=== PATIENT | female | born 1955 | race Caucasian/White ===

== ENCOUNTER 2020-10-17 08:46 | Day surgery (SDC) | payer MEDICARE, OTHER ==
[2020-10-17 09:14] VITALS: BMI 41.8
[2020-10-17] MEDS ORDERED: Sodium Bicarbonate 2.5 MEQ/5 ML VIAL ONE (09:36)
[2020-10-17] MEDS ORDERED: Albumin 25% 100 ML ONE (09:36)
[2020-10-17 09:55] VITALS: BP 136/77; TEMP 97.8
== END 2020-10-17 11:10 | disposition home or self-care (01) ==
LOC: CSHULT 08:46
PROVIDERS: ATTEND Internal Medicine Gastroenterology
DX: R18.8 Other ascites (principal); K74.60 Unspecified cirrhosis of liver; K76.7 Hepatorenal syndrome; K72.90 Hepatic failure, unspecified without coma
CPT/HCPCS: 49083; P9047

== ENCOUNTER → 2021-05-09 | Day surgery (SDC) | payer MEDICARE, OTHER ==
[~2021-05-09] MED LIST: Albumin 25% 100 ML ONE; FLU VACC QS2021-22(65YR UP)/PF 240 MCG/0.7 ML SYRINGE IM ONE; Lidocaine 1% PF 5 ML VIAL ONE; Sodium Bicarbonate 2.5 MEQ/5 ML VIAL ONE
[2021-05-09 15:01] VITALS: BP 99/54; TEMP 98.2
[2021-05-09 16:00] LABS: BF Color Yellow; Body Fluid Source Ascites Body Fluid; Clarity Clear (Clear); Tube # 1
[2021-05-09 17:09] LABS: BF Segmented Neutrophils 10 %
[2021-05-09 17:43] LABS: Lymphocytes 47 %
[2021-05-09 17:44] LABS: Cell Count Non Hematic 43 %
[2021-05-09 20:47] LABS: Fluid, Amylase 12 U/L (Not Available); Fluid, LDH 50 U/L (Not Available); Fluid, Protein 1.3 g/dL (Not Available); Fluid, Triglycerides Less than 11 mg/dL (Not Available)
== END | disposition home or self-care (01) ==
LOC: CSHULT 12:24
PROVIDERS: ATTEND Family Medicine
DX: R18.8 Other ascites (principal)
CPT/HCPCS: 49083; 82042; 82150; 83615; 84157; 84478; 87070; 87205; 89051; P9047; 88112

== ENCOUNTER → 2021-07-27 | Day surgery (SDC) | payer MEDICARE, OTHER ==
[~2021-07-27] MED LIST changes: -FLU VACC QS2021-22(65YR UP)/PF 240 MCG/0.7 ML SYRINGE IM ONE
[2021-07-27 12:35] VITALS: BMI 34.0
[2021-07-27 14:25] VITALS: BP 106/56
[2021-07-27 17:10] LABS: BF Color Yellow; Body Fluid Source Paracentesis Fluid; Clarity Clear (Clear); Tube # EDTA
[2021-07-27 17:26] LABS: BF Segmented Neutrophils 78 %; Cell Count Non Hematic 12 %; Lymphocytes 10 %
== END ==
LOC: CSHULT 11:32
PROVIDERS: ATTEND Family Medicine
DX: R18.8 Other ascites (principal); K76.7 Hepatorenal syndrome; K74.60 Unspecified cirrhosis of liver
CPT/HCPCS: 49083; 87070; 87205; 89051; P9047; 87077; 88112; 88305